=== PATIENT | female | born 2000 | race Caucasian/White ===

== ENCOUNTER 2020-08-04 11:45 | Emergency (ER) | payer BC ==
[2020-08-04 12:33] LABS: #Eosinphils 0.1 thou/uL (0.0-0.7); #Lymphocytes 1.8 thou/uL (1.20-3.40); #Monocytes 0.8 thou/uL (0.11-0.59); #Neutrophils 9.1 thou/uL (1.40-6.50); %Basophils 0.3 % (0.0-1.0); %Eosinophils 0.4 % (0.0-10.0); %Monocytes 6.5 % (0.0-10.0); %Neutrophils 77.8 % (42.0-75.0); Hemoglobin 15.2 g/dL (12.0-16.0); Mean Corpuscular HGB CONC 34.2 g/dL (32.0-36.0); Mean Corpuscular Hemoglobin 30.8 pg (27.0-31.0); Mean Corpuscular Volume 90.1 fL (78.0-98.0); Mean Platelet Volume 7.3 fL (7.4-10.4); Platelet Count 171 thou/uL (130-400); RBC Distribution Width 10.7 % (11.5-14.5); Red Blood Cell (RBC) Count 4.92 mill/uL (4.20-5.40); White Blood Cell (WBC) Count 11.8 thou/uL (4.8-10.8)
[2020-08-04 12:39] LABS: Pregnancy Test - Urine (BHCG) Negative (Negative); Pregu Control Background? CLEAR/WHITE (CLR/WHITE); Pregu Control Bar Appear? YES (CONTROL BAR); Specific Gravity 1.027 (1.002-1.036)
[2020-08-04 12:57] LABS: ALT (SGPT) 8 U/L (8-55); AST (SGOT) 16 U/L (5-34); Albumin 4.5 g/dL (3.5-5.0); Alkaline Phosphatase 70 U/L (40-110); Anion Gap 13 mmol/L (10-20); BUN (Urea Nitrogen) 13 mg/dL (7.0-18.7); Calc. Creatinine Clearance 0 mL/min (70-130); Calcium 9.4 mg/dL (7.8-10.44); Carbon Dioxide 23 mmol/L (22-29); Chloride 106 mmol/L (98-107); Glucose 83 mg/dL (70-105); Lipase 14 U/L (8-78); Potassium 4.1 mmol/L (3.5-5.1); Protein, Total 7.5 g/dL (6.0-8.3); Sodium 138 mmol/L (136-145)
[2020-08-04 13:01] LABS: Bilirubin Negative (Negative); Blood, Urine Negative (Negative); Clarity Turbid (Clear); Glucose, Urine (Dipstick) Normal (Negative); Ketone, Urine 60 mg/dL (Negative); Leukocyte Negative Leu/uL (Negative); Nitrite Negative (Negative); Protein, Urine (Dipstick) 50 mg/dL (Neg-Trace); Specific Gravity, Urine 1.029 (1.002-1.036); Urobilinogen Normal mg/dL (Less than 2); WBC/HPF 0-3 HPF (0-3); pH, Urine 7.5 (5.0-9.0)
[2020-08-04 13:02] LABS: Bacteria/HPF 1+ HPF (None Seen)
[2020-08-04] MEDS ORDERED: Ondansetron PF 4 MG/2 ML Vial ONE (13:13)
--- NOTE | 2020-08-04 13:41 | RAD ---
Exam: One view chest 2 views abdomen HISTORY: Nausea. FINDINGS: Chest one view: Normal cardiac silhouette. Pulmonary vessels and hilum are normal. Costophr enic angles are clear. No mass or consolidation. No pneumothorax or acute osseous abnormalities Two views abdomen: Nonspecific bowel gas pattern. No suspicious densities in the abdomen or pelvis. T here appears be residual barium outlining the stomach. No differential air-fluid levels. No pneumoperitoneum. No acute osseous abnormalities. There is partial sacralization of L5 with the adjac ent sacrum. IMPRESSION: 1. No acute cardiac or point process 2. Nonspecific bowel gas pattern Transcribed Date/Time: 08/04/2020 2:11 PM
[2020-08-04] MEDS ORDERED: Ketorolac Tromethamine 30 MG/ML VIAL ONE (15:33)
== END 2020-08-04 16:33 | disposition home or self-care (01) ==
LOC: ERS 11:45
DX: R10.13 Epigastric pain (principal)
CPT/HCPCS: 36415; 74022; 80053; 81003; 81015; 81025; 83690; 85025; 96374; 96375; J1885; J2405

== ENCOUNTER 2020-08-05 13:51 | Observation (INO) | payer BC ==
[2020-08-05] MEDS ORDERED: Iopamidol-370 76% 500 ML 1 ML ONE (14:34)
[2020-08-05] MEDS ORDERED: Iopamidol 370 76% 50 ML VIAL FS ONE (14:34)
[2020-08-05] MEDS ORDERED: Ondansetron PF 4 MG/2 ML Vial ONE (16:27)
[2020-08-05] MEDS ORDERED: Ketorolac Tromethamine 30 MG/ML VIAL ONE (16:27)
[2020-08-05 16:32] LABS: #Basophils 0.1 thou/uL (0.0-0.2); #Eosinphils 0.1 thou/uL (0.0-0.7); #Lymphocytes 2.2 thou/uL (1.20-3.40); #Monocytes 1.4 thou/uL (0.11-0.59); #Neutrophils 12.6 thou/uL (1.40-6.50); %Basophils 0.3 % (0.0-1.0); %Eosinophils 0.3 % (0.0-10.0); %Lymphocytes 13.5 % (21.0-51.0); %Monocytes 8.6 % (0.0-10.0); %Neutrophils 77.3 % (42.0-75.0); Hemoglobin 14.1 g/dL (12.0-16.0); Mean Corpuscular HGB CONC 34.4 g/dL (32.0-36.0); Mean Corpuscular Volume 90.2 fL (78.0-98.0); Mean Platelet Volume 7.3 fL (7.4-10.4); Platelet Count 184 thou/uL (130-400); RBC Distribution Width 10.7 % (11.5-14.5); Red Blood Cell (RBC) Count 4.54 mill/uL (4.20-5.40); White Blood Cell (WBC) Count 16.2 thou/uL (4.8-10.8)
[2020-08-05 16:51] LABS: Bilirubin Negative (Negative); Blood, Urine Trace (Negative); Clarity Clear (Clear); Glucose, Urine (Dipstick) Normal (Negative); Ketone, Urine 100 mg/dL (Negative); Leukocyte Negative Leu/uL (Negative); Nitrite Negative (Negative); Protein, Urine (Dipstick) 10 mg/dL (Neg-Trace); RBC/HPF 0-3 HPF (0-3); Specific Gravity, Urine 1.022 (1.002-1.036); Squamous Epithelial 0-3 HPF (0-3); Urobilinogen Normal mg/dL (Less than 2); WBC/HPF 0-3 HPF (0-3); pH, Urine 6.5 (5.0-9.0)
[2020-08-05 16:53] LABS: Bacteria/HPF Rare-Few HPF (None Seen)
[2020-08-05 16:54] LABS: Anion Gap 14 mmol/L (10-20); BUN (Urea Nitrogen) 9 mg/dL (7.0-18.7); Calc. Creatinine Clearance 0 mL/min (70-130); Calcium 8.9 mg/dL (7.8-10.44); Carbon Dioxide 23 mmol/L (22-29); Chloride 105 mmol/L (98-107); Glucose 80 mg/dL (70-105); Sodium 138 mmol/L (136-145)
--- NOTE | 2020-08-05 19:34 | CT ---
CT OF THE ABDOMEN AND PELVIS WITH IV CONTRAST INDICATION: Lower abdominal pain and elevated white count COMPARISON: None FINDINGS: ABDOMEN: Lung bases: Clear Liver: Mild periportal edema Gallbladder: Normal appearing. Pancreas: Normal. Adrenal glands: Normal. Spleen: Normal. Kidneys and ureters: Normal. No hydronephrosis. Vasculature: Normal. Lymph nodes:No lymphadenopathy. Free fluid in abdomen:No free fluid is evident. PELVIS: Small and large bowel: The cecum is protruding into the lower posterior right aspect of the pelvis in ducing mass effect on the rectum. Small bowel is of normal caliber. Appendix:There is a dilated fluid-filled structure protruding from the posterior margin of the cecum and running retrocecally into the posterior aspect of the pelvis on image 58 through 63 suspicious for an enlarged appendix measuring up to 1.1 cm. No drainable fluid collection is evident. Bladder: Normal. Rectal and perirectal soft tissues:Normal. Reproductive structures: Normal. Free fluid in pelvis: No free fluid is evident. Lymphadenopathy pelvis: No lymphadenopathy is evident. Osseous structures: No acute osseous abnormality. No destructive osteolytic or osteoblastic lesion i s identified. Soft tissues:Normal. IMPRESSION: 1. Findings of uncomplicated acute appendicitis. The cecum is low-lying within the pelvis. The append ix is retrocecal in location. No drainable fluid collection is evident. 2. Findings called to Dr. Beard at 7:30 PM on August 05, 2020.
[2020-08-05] MEDS ORDERED: Piperacillin/Tazobactam 3.375 GM VIAL ONE (22:07)
[2020-08-05] MEDS ORDERED: Morphine 2 MG/ML VIAL ONE (22:16)
[2020-08-05] MEDS ORDERED: hydrALAZINE 20 MG/ML VIAL SLOW IVP PRN (22:21)
[2020-08-05] MEDS ORDERED: Dextrose 50% Abboject 50 ML SYRINGE SLOW IVP PRN (22:21)
[2020-08-05] MEDS ORDERED: Promethazine HCl 25 MG/ML VIAL IM PRN (22:21)
[2020-08-05] MEDS ORDERED: Dextrose 5% in Water 1,000 ML IV PRN (22:21)
[2020-08-05] MEDS ORDERED: Ondansetron PF 4 MG/2 ML Vial IVP PRN (22:21)
[2020-08-05] MEDS ORDERED: Ketorolac Tromethamine 30 MG/ML VIAL IVP PRN (22:21)
[2020-08-05] MEDS ORDERED: Morphine 2 MG/ML VIAL SLOW IVP PRN (22:21)
[2020-08-05] MEDS ORDERED: Morphine 4 MG/ML VIAL SLOW IVP PRN (22:21)
[2020-08-05 23:01] VITALS: BMI 19.1
[2020-08-06] MEDS: D5 1/2 NS w/20 mEq KCL 1,000 ML IV SCH ×2 (00:02→10:10)
[2020-08-06] MEDS: Piperacillin/Tazobactam 3.375 GM in Sodium Chloride 0.9% 100 ML IVPB SCH ×2 (04:38→12:00)
[2020-08-06 05:53] LABS: SARS-CoV-2 PCR by NAA Not Detected (NotDetected)
[2020-08-06] MEDS ORDERED: Famotidine 20 MG TAB PO SCH (09:00)
[2020-08-06] MEDS ORDERED: Famotidine/PF 20 mg/2ml Vial SLOW IVP SCH (09:00)
--- NOTE | 2020-08-06 09:00 | HP ---
CHIEF COMPLAINT: Appendicitis. HISTORY OF PRESENT ILLNESS: This is a 20-year-old female with a 2-day history of pain in her low pelvis area. She has had similar pain in the past that was associated with her menstrual cycles when she changed her control regimen, it improved. This was similar pain, although more severe. Seen in the emergency room, where CT scan shows low-riding cecum and appendicitis. No nausea, vomiting, fever, chills, or dysuria. No history of inflammatory bowel disease or Crohn's. PAST MEDICAL HISTORY: She denies. PAST SURGICAL HISTORY: She denies. MEDICATIONS: Taken daily, control. ALLERGIES: NO KNOWN DRUG ALLERGIES. SOCIAL HISTORY: No smoking or alcohol or other drugs. She is a student. REVIEW OF SYSTEMS: Ten-system review of systems is otherwise negative unless described above. PHYSICAL EXAMINATION: HEENT: Sclerae are anicteric. Oropharynx clear. NECK: No lymphadenopathy. CHEST: Clear. HEART: Regular rate. ABDOMEN: Soft. Tender in the low abdomen with localized right lower quadrant and suprapubic guarding without rebound. No abdominal or inguinal hernias. EXTREMITIES: No ischemia or edema to extremities. LABORATORY DATA: White blood cell count is 16. IMAGING DATA: CT scan shows what appears to be an appendix down in the pelvis and the cecum appendicitis. ASSESSMENT: Acute appendicitis. PLAN: Laparoscopic appendectomy. Risks, benefits, and alternatives discussed. She gives consent. We will do this today. 30 minutes spent in review of labs, x-ray, and discussion with the patient. Job ID: [id number]
[2020-08-06] MEDS ORDERED: Succinylcholine 200 MG/10 ml SYRINGE FS ONE (09:20)
[2020-08-06] MEDS ORDERED: Glycopyrrolate 0.2 MG/ML 5 ML SYRINGE ONE (09:20)
[2020-08-06] MEDS ORDERED: Ketorolac Tromethamine 30 MG/ML VIAL ONE (09:20)
[2020-08-06] MEDS ORDERED: Lidocaine 1% PF 5 ML VIAL ONE (09:20)
[2020-08-06] MEDS ORDERED: Dexamethasone 20 MG/5 ML VIAL ONE (09:20)
[2020-08-06] MEDS ORDERED: Ondansetron PF 4 MG/2 ML Vial ONE ×2 (09:20→09:47)
[2020-08-06] MEDS ORDERED: PROPOFOL 200 MG/20 ML VIAL ONE (09:20)
[2020-08-06] MEDS ORDERED: Rocuronium Bromide 10 MG/ML (10ML VIAL) ONE (09:20)
[2020-08-06] MEDS ORDERED: Famotidine/PF 20 mg/2ml Vial ONE (09:47)
[2020-08-06] MEDS ORDERED: Scopolamine 1.5 mg/72 hour Patch ONE (09:47)
[2020-08-06] MEDS ORDERED: Lidocaine 1% w/Epinephrine 1:100K 20 ML VIAL ONE (10:30)
[2020-08-06] MEDS ORDERED: Bupivacaine 0.25% HCL 30 ML VIAL ONE (10:30)
[2020-08-06] MEDS ORDERED: Fentanyl 100 MCG/2 ML VIAL ONE (10:47)
[2020-08-06] MEDS ORDERED: Piperacillin/Tazobactam 3.375 GM VIAL ONE (11:32)
[2020-08-06] MEDS ORDERED: HYDROcodone/Acetaminophen 7.5/325 mg Tablet PO PRN (11:47)
[2020-08-06] MEDS ORDERED: Meperidine HCl/PF 25 MG/ML VIAL ONE (12:01)
[2020-08-06] MEDS ORDERED: Meperidine HCl/PF 25 MG/ML VIAL SLOW IVP PRN (12:02)
[2020-08-06] MEDS ORDERED: Promethazine HCl 25 MG/ML VIAL SLOW IVP PRN (12:02)
[2020-08-06] MEDS ORDERED: Promethazine HCl 25 MG/ML VIAL IM PRN (12:02)
[2020-08-06] MEDS ORDERED: Ondansetron HCl/PF 4 MG/2 ML Vial IVP PRN (12:02)
[2020-08-06 15:28] VITALS: BP 95/59; TEMP 97.9
--- NOTE | 2020-08-06 22:50 | OP ---
DATE OF PROCEDURE: 08/06/2020 PREOPERATIVE DIAGNOSIS: Acute appendicitis. POSTOPERATIVE DIAGNOSIS: Acute appendicitis. PROCEDURE PERFORMED: Laparoscopic appendectomy. ANESTHESIA: General. ESTIMATED BLOOD LOSS: Minimal. COMPLICATIONS: None. SPECIMENS: Appendix. FINDINGS: Appendicitis. DESCRIPTION OF PROCEDURE: The patient was taken to the operating room and laid supine on the operating table. After general anesthetic was obtained, a Perez catheter was placed. The abdomen was prepped and draped in a sterile fashion. A curved incision was made below the umbilicus. Cautery was used to dissect down to and incise the intra-abdominal fascia. The abdominal cavity was entered bluntly using a Nicole clamp. A holding stitch of Vicryl was placed on each side of the fascia. A Ilan trocar was placed. High-flow peritoneum was obtained. A suprapubic 5-mm port and a left lower quadrant 5-mm port were placed under direct camera visualization. The cecum was rolled over to reveal acute appendicitis. A small window was made at the base of the appendix at the mesoappendix. A laparoscopic stapler was fired across the base of the appendix. A reload was fired across the mesoappendix. There was no bleeding on the staple lines. The appendix was placed in the EndoCatch bag and brought out through the Ilan. The right lower quadrant and pelvis were irrigated using sterile solution. There was no evidence of perforation, no pus. All port sites were infiltrated using local anesthesia. All ports were removed under camera visualization. Pneumoperitoneum was let down. Vicryl suture was used to close the fascial defect below the umbilicus; #4-0 Monocryl and Dermabond were used to close the skin incision. The patient was en route to recovery in stable condition. All instrument counts, needle counts, and lap counts were correct. Job ID: [id number]
== END 2020-08-06 18:28 | disposition home or self-care (01) ==
LOC: ERS 13:51 → SURG A 20:45
PROVIDERS: ADMIT Surgery; ATTEND Surgery
PROC: 0DTJ4ZZ Resection of Appendix, Percutaneous Endoscopic Approach (ICD-10-PCS; principal; 2020-08-06)
DX: K35.80 Unspecified acute appendicitis (principal); Z79.899 Other long term (current) drug therapy; Z20.822 Contact with and (suspected) exposure to COVID-19
CPT/HCPCS: 36415; 74177; 80048; 81003; 81015; 85025; 87635; 88304; 96374; 96375; 96376; G0378; J1100; J1885; J2175; J2270; J2405; J2543; J2704; J3010; J3480; J3490; Q9967; S0020; S0028; U0003; U0005